=== PATIENT | male | born 1980 | race Asian ===

== ENCOUNTER 2020-01-14 18:21 | Inpatient (IN) | payer OTHER ==
[~2020-01-14] VITALS: Ht 193 cm; Wt 100.3 kg
--- NOTE | 2020-01-14 18:22 | NUR ---
Placed in room 01 . Placed on desk monitor, blood pressure machine and pulse oximeter. To gown for exam. Side rails up.
[2020-01-14 18:27] VITALS: BP_SYST 164
[2020-01-14] MEDS ORDERED: NACL 0.9% 1,000 ML IV ONE ×2 (18:27→20:34)
[2020-01-14] MEDS ORDERED: ONDANSETRON HCL 4 MG/2 ML VIAL IVP ONE (18:30)
[2020-01-14] MEDS ORDERED: LORazepam 2 MG/ML VIAL IVP ONE (18:30)
--- NOTE | 2020-01-14 18:30 | NUR ---
pt arrives via [facility]S d/t s/p seizure and DT. Per EMS pt had a witnessed tonic clonic kseizure that lasted approx 4 min. Per EMS pt did have a post ecital stage however, he is now AAOx3. Seizure precautions are in place
--- NOTE | 2020-01-14 18:30 | NUR ---
ER at bedside examining patient.
--- NOTE | 2020-01-14 18:45 | NUR ---
# 20 gauge angiocath placed to left hand by EMS. Use of asceptic technique. Opsite placed over site. Blood return noted. Blood for lab drawn from site. Flushed with 10 cc of normal saline. No evidence of infiltration noted. Patient tolerated well.
--- NOTE | 2020-01-14 18:50 | NUR ---
Medicated the pt w/ Ativan IVP, Zofran IVP, and NS 1l per MD order. Will reassess
[2020-01-14 19:03] LABS: ANION GAP 21 (5-15); CALCIUM 9.8 mg/dL (8.4-11.0); CHLORIDE 92 mmol/L (98-107); CREATININE 1.13 mg/dL (0.55-1.30); GLUCOSE 188 mg/dL (70-99); POTASSIUM 3.5 mmol/L (3.5-5.1); SODIUM SERUM 132 mmol/L (136-145); UREA NITROGEN, BLOOD 6 mg/dL (8-21)
[2020-01-14 19:04] LABS: BASOPHILS % (AUTO) 0.6 % (0.0-2.0); EOSINOPHILS % (AUTO) 0.4 % (0.0-4.0); GFR AFRICAN AMERICAN 93 mL/min (>90); HEMATOCRIT 43.7 % (36-54); HEMOGLOBIN 14.5 g/dL (14.0-18.0); LYMPHOCYTES # (AUTO) 0.6 K/uL (1.0-5.5); LYMPHOCYTES % (AUTO) 9.9 % (20.5-51.5); MEAN CORPUSCULAR HEMOGLOBIN 32 pg (27-31); MEAN CORPUSCULAR HGB CONC 33 % (32-36); MEAN CORPUSCULAR VOLUME 96 fL (79.0-98.0); MONOCYTES # (AUTO) 0.4 K/uL (0.0-1.0); MONOCYTES % (AUTO) 6.5 % (1.7-9.3); NEUTROPHILS # (AUTO) 5.4 K/uL (1.8-7.7); NEUTROPHILS % (AUTO) 82.6 % (40.0-70.0); RED BLOOD CELL COUNT(AUTO) 4.55 MIL/uL (4.2-6.2); RED CELL DISTRIBUTION WIDTH 13.5 % (9.0-15.0); WHITE BLOOD COUNT (AUTO) 6.6 K/uL (4.8-10.8)
--- NOTE | 2020-01-14 19:05 | NUR ---
urine collected and sent to the lab
[2020-01-14 19:09] LABS: ALANINE AMINOTRANSFERASE 140 U/L (12-78); ALBUMIN 3.6 g/dL (3.4-4.8); ASPARTATE AMINOTRANSFERASE 313 U/L (10-37); TOTAL BILIRUBIN 2.2 mg/dL (0.0-1.0)
[2020-01-14 19:11] LABS: ALCOHOL, BLOOD < 3 mg/dL (<10)
--- NOTE | 2020-01-14 19:13 | NUR ---
care endorsed to Prudence SHIN. Pt is currently in stable condition
--- NOTE | 2020-01-14 19:17 | NUR ---
report received from ALEIDA Lee for continuation of care.
--- NOTE | 2020-01-14 19:25 | NUR ---
Patient transported to radiology via gurney, accompanied by staff.
[2020-01-14 19:30] LABS: PLATELET COUNT (AUTO) 160 K/uL (130-430)
[2020-01-14 19:31] LABS: BARBITURATE, URINE NEGATIVE (NEG <=200); BENZODIAZEPINE, URINE NEGATIVE (NEG <=150); CANNABINOID, URINE NEGATIVE (NEG <=50); COCAINE, URINE NEGATIVE (NEG <=150); METHAMPHETAMINES SCREEN,URINE NEGATIVE (NEG <=500); OPIATE, URINE NEGATIVE (NEG <=100); PHENCYCLIDINE SCREEN,URINE NEGATIVE (NEG <=25); UR TRICYCLIC ANTIDEPRESSANTS POSITIVE (NEG <=300); URINE AMPHETAMINE NEGATIVE (NEG <=500); URINE METHADONE NEGATIVE (NEG <=200); URINE OXYCODONE SCREEN NEGATIVE (NEG <=100); URINE PROPOXYPHENE SCREEN NEGATIVE (NEG <=300)
--- NOTE | 2020-01-14 19:32 | NUR ---
, m\\\\critical lab reporting - lacitc acid 9.0
--- NOTE | 2020-01-14 19:41 | NUR ---
patients returned from radiology.
--- NOTE | 2020-01-14 19:55 | NUR ---
pt speaking on phone with family member. pt able to speak using complete sentences. pt alert and oriented x4. pt appears to have hand tremors.
--- NOTE | 2020-01-14 20:21 | NUR ---
pt reports being thirsty, given glass of water. no signs of difficulty swallowing, choking, or coughing.
--- NOTE | 2020-01-14 21:10 | NUR ---
pt IV fluids normal saline initiated at 999mls/hr per md order for a total of 2000ml.
[2020-01-14] MEDS ORDERED: chlordiazePOXIDE HCL 25 MG CAPSULE PO ONE (21:30)
--- NOTE | 2020-01-14 21:56 | NUR ---
medications adminstered per MD order. pt tolerated well.
[2020-01-14] MEDS ORDERED: cefTRIAXone 1 GM IVPB PREMIX 50 ML IV ONE (22:15)
--- NOTE | 2020-01-14 22:20 | NUR ---
Patient's code status is FULL CODE paperwork completed and placed in chart.
[2020-01-14] MEDS ORDERED: LISI-600 PO (22:21)
--- NOTE | 2020-01-14 22:21 | NUR ---
Medication reconciliation completed with information provided by PATIENT. Any prior medication reconciliation on file was reviewed and corrected.
--- NOTE | 2020-01-14 22:32 | NUR ---
Blood cultures drawn, prior to administration of antibiotic.
--- NOTE | 2020-01-14 22:38 | NUR ---
ADMIT ORDERS RECEIVED FROM DR. GUO.
--- NOTE | 2020-01-14 22:40 | NUR ---
CALLED [facility], CHARGE NURSE, TO REQUEST TELE BED.
[2020-01-14] MEDS ORDERED: FOLIC ACID 1 MG, THIAMINE HCL 100 MG, MAGNESIUM SULFATE 1 GM, MVI 10 ML in NACL 0.9% 1,... IV ONE (22:45)
[2020-01-14 23:21] LABS: THYROID STIMULATING HORMONE 2.54 uIu/mL (0.34-4.82)
[2020-01-14] MEDS ORDERED: MAGNESIUM SULFATE 1 GM/2 ML VIAL ONE (23:37)
[2020-01-14] MEDS ORDERED: MVI 10 ML VIAL IV ONE ×2 (23:37→23:50)
[2020-01-14] MEDS ORDERED: THIAMINE HCL 100 MG/ML VIAL ONE (23:37)
[2020-01-14] MEDS ORDERED: FOLIC ACID 5 MG/ML VIAL IV ONE (23:37)
--- NOTE | 2020-01-14 23:45 | NUR ---
banana bag 1000ml initiated at 150mls/hr per MD order. no signs of infiltration. pt tolerating well. pt denies pain. pt vital signs stable.
--- NOTE | 2020-01-15 00:55 | NUR ---
Patient will be admitted to care of Dr. Gimenez. Admitted to tele unit. Will go to room 113a. Belongings list completed. Complete and up to date summary report printed. SBAR report to be given at bedside with opportunity for questions.
--- NOTE | 2020-01-15 01:03 | NUR ---
Transfer to tele via ACLS protocol. Licensed nurse present. IV present no signs or symptoms of infiltration.
--- NOTE | 2020-01-15 01:18 | NUR ---
ADMISSION NOTE Received patient from ER via gurney. Patient admitted with diagnosis of DILIRIUM TREMORS, SEIZURE, ALCOHOLISM. Patient is awake, alert, oriented X 4. Patient oriented to hospital room, call light, toileting, pain management and safety-teach back done. Patient informed that JOEY will be nurse and that their room number is 113A. Personal belongings checked and Belongings List documented. Call light within reach.
[2020-01-15] MEDS: LORazepam 2 MG/ML VIAL IVP PRN ×2 (01:30→10:39)
[2020-01-15 01:33] VITALS: BP_SYST 143
--- NOTE | 2020-01-15 03:41 | NUR ---
RN ROUNDS PT RESTING IN BED, KIM ANY PAIN AT THIS TIME. BREATHING EVEN AND UNLABORED TO ROOM AIR. NO S/S OF DISTRESS NOTED. IVF RUNNING ORDERED RATE. NO SIGNS INFILTRATION NOTED. CALL LIGHT WITHIN REACH. SIDE RAILS UP. SAFETY AND FALL PRECAUTIONS MAINTAINED. WILL CONTINUE TO MONITOR.
[2020-01-15 06:43] LABS: BASOPHILS # (AUTO) 0.1 K/uL (0.0-0.2); EOSINOPHILS # (AUTO) 0.2 K/uL (0.0-0.4); EOSINOPHILS % (AUTO) 3.7 % (0.0-4.0); HEMATOCRIT 38.2 % (36-54); HEMOGLOBIN 12.9 g/dL (14.0-18.0); LYMPHOCYTES # (AUTO) 0.7 K/uL (1.0-5.5); LYMPHOCYTES % (AUTO) 13.4 % (20.5-51.5); MEAN CORPUSCULAR HEMOGLOBIN 33 pg (27-31); MEAN CORPUSCULAR HGB CONC 34 % (32-36); MEAN CORPUSCULAR VOLUME 97 fL (79.0-98.0); MONOCYTES # (AUTO) 0.5 K/uL (0.0-1.0); MONOCYTES % (AUTO) 9.1 % (1.7-9.3); NEUTROPHILS # (AUTO) 3.9 K/uL (1.8-7.7); NEUTROPHILS % (AUTO) 72.8 % (40.0-70.0); PLATELET COUNT (AUTO) 76 K/uL (130-430); RED BLOOD CELL COUNT(AUTO) 3.95 MIL/uL (4.2-6.2); RED CELL DISTRIBUTION WIDTH 13.7 % (9.0-15.0); WHITE BLOOD COUNT (AUTO) 5.3 K/uL (4.8-10.8)
[2020-01-15 07:00] LABS: CALCIUM 8.5 mg/dL (8.4-11.0); CREATININE 0.68 mg/dL (0.55-1.30); POTASSIUM 3.1 mmol/L (3.5-5.1); TOTAL BILIRUBIN 1.9 mg/dL (0.0-1.0)
--- NOTE | 2020-01-15 07:24 | NUR ---
CLOSING NOTES PT RESTING IN BED, KIM ANY PAIN AT THIS TIME. BREATHING EVEN AND UNLABORED TO ROOM AIR. NO S/S OF DISTRESS NOTED. IVF RUNNING ORDERED RATE. NO SIGNS INFILTRATION NOTED. CALL LIGHT WITHIN REACH. SIDE RAILS UP. SAFETY AND FALL PRECAUTIONS MAINTAINED. WILL CONTINUE TO MONITOR UNTIL ENDORSE TO DAY SHIFT RN.
[2020-01-15 08:00] VITALS: BP_SYST 146
--- NOTE | 2020-01-15 08:00 | NUR ---
initial notes rec patient awake alert with hob elevated and eating breakfast,.ivl intact on the r hand. no infiltration oted. bed to the lowest position and side rails up and locked. deniespain.no seizure activity noted.call light within reached no osb noted.
[2020-01-15] MEDS: chlordiazePOXIDE HCL 25 MG CAPSULE PO SCH ×2 (08:42→16:39)
[2020-01-15 12:00] VITALS: BP_SYST 157
--- NOTE | 2020-01-15 13:10 | NUR ---
rounds spoke with dr worrell to reconcile bp med. no sob noted. call light within reached.
[2020-01-15] MEDS ORDERED: cloNIDine HCL 0.1 MG TABLET PO PRN (13:15)
[2020-01-15] MEDS ORDERED: LISINOPRIL 20 MG TABLET PO ONE (13:15)
[2020-01-15 16:00] VITALS: BP_SYST 161
--- NOTE | 2020-01-15 16:26 | NUR ---
DC Planning: faxed updated progress notes to [facility] # [phone]. Unable to speak with [facility], I was on hold for more than 15 mins , will try again. Addendum: 01/15/20 at 1630 by Desean Javier RN The above info was faxed to [facility] at 0940. I called [facility], again with a long holding time tel # [phone]. I will call again in am.
--- NOTE | 2020-01-15 16:52 | NUR ---
rounds noted with periods of confusion. denies pain. insisted of going home.re oriented re elevated bp and pmd has not made rounds.
--- NOTE | 2020-01-15 19:00 | NUR ---
closing notes pt signed ama. stated that dr worrell instructed him re his meds. explained that that there was no d/c order. stated will signed ama and understood the consequences. no sob noted. jess cheek nurse took out the ivl and the id band. was escorted to the lobby. stated that family is waiting outside
[2020-01-16] MEDS ORDERED: LISINOPRIL 20 MG TABLET PO SCH (09:00)
--- NOTE | 2020-01-16 11:14 | NUR ---
DC Planning: Updated [facility], the pt left AMA yesterday at 1900.
== END 2020-01-15 19:09 | disposition left against medical advice (07) | DRG 101 ==
LOC: SED 18:21 → STU 22:48
PROVIDERS: ADMIT Internal Medicine; ATTEND Internal Medicine
DX: G40.409 Other generalized epilepsy and epileptic syndromes, not intractable, without status epilepticus (principal); F10.239 Alcohol dependence with withdrawal, unspecified; R74.0 Nonspecific elevation of levels of transaminase and lactic acid dehydrogenase [LDH]; R56.9 Unspecified convulsions; R00.0 Tachycardia, unspecified; Z88.1 Allergy status to other antibiotic agents; Z79.899 Other long term (current) drug therapy; Z71.41 Alcohol abuse counseling and surveillance of alcoholic
CPT/HCPCS: 36415; 70450-TC; 71045; 80053; 80061; 80307; 83605; 84443-TC; 84484; 85025; 85379; 86140; 87040-TC; 93005; G0378; G0482; J0696; J2060; J2405; J3411; J3475; J3490; J7030

== ENCOUNTER 2020-12-01 18:16 | Inpatient (IN) | payer OTHER, SELFPAY ==
[~2020-12-01] VITALS: Ht 193 cm; Wt 78.9 kg
[~2020-12-01 18:16] MED LIST: LISI20TA30 PO
[2020-12-01 18:18] VITALS: BP_SYST 158
[2020-12-01] MEDS ORDERED: LORazepam 2 MG/ML VIAL ONE (19:27)
[2020-12-01] MEDS ORDERED: LORazepam 2 MG/ML VIAL IVP ONE ×2 (19:30→21:15)
[2020-12-01 19:53] LABS: BASOPHILS # (AUTO) 0.1 K/uL (0.0-0.2); BASOPHILS % (AUTO) 1.5 % (0.0-2.0); EOSINOPHILS % (AUTO) 0.4 % (0.0-4.0); HEMATOCRIT 37.2 % (36-54); HEMOGLOBIN 11.9 g/dL (14.0-18.0); LYMPHOCYTES # (AUTO) 0.7 K/uL (1.0-5.5); LYMPHOCYTES % (AUTO) 11.7 % (20.5-51.5); MEAN CORPUSCULAR HEMOGLOBIN 33 pg (27-31); MEAN CORPUSCULAR HGB CONC 32 % (32-36); MEAN CORPUSCULAR VOLUME 102 fL (79.0-98.0); MONOCYTES # (AUTO) 0.7 K/uL (0.0-1.0); MONOCYTES % (AUTO) 11.9 % (1.7-9.3); NEUTROPHILS # (AUTO) 4.2 K/uL (1.8-7.7); NEUTROPHILS % (AUTO) 74.5 % (40.0-70.0); RED BLOOD CELL COUNT(AUTO) 3.64 MIL/uL (4.2-6.2); RED CELL DISTRIBUTION WIDTH 19.7 % (9.0-15.0); WHITE BLOOD COUNT (AUTO) 5.6 K/uL (4.8-10.8)
[2020-12-01 20:14] LABS: ANION GAP 29 (5-15); CALCIUM 8.5 mg/dL (8.4-11.0); CHLORIDE 100 mmol/L (98-107); CREATININE 0.88 mg/dL (0.55-1.30); GLUCOSE 138 mg/dL (70-99); POTASSIUM 4.3 mmol/L (3.5-5.1); SODIUM SERUM 139 mmol/L (136-145); UREA NITROGEN, BLOOD 7 mg/dL (8-21)
[2020-12-01] MEDS ORDERED: FOLIC ACID 5 MG/ML VIAL IV ONE (20:15)
[2020-12-01] MEDS ORDERED: THIAMINE HCL 100 MG in NS 50 ML IV ONE (20:15)
[2020-12-01] MEDS ORDERED: NACL 0.9% 1,000 ML IV ONE (20:15)
[2020-12-01] MEDS ORDERED: MAGNESIUM SULFATE 50 ML IV ONE (20:15)
[2020-12-01 20:26] LABS: ALANINE AMINOTRANSFERASE 43 U/L (12-78); ASPARTATE AMINOTRANSFERASE 231 U/L (10-37); FREE T4 (FREE THYROXINE) 1.4 ng/dl (0.8-1.5); THYROID STIMULATING HORMONE 5.03 uIu/mL (0.36-3.74); TOTAL BILIRUBIN 6.3 mg/dL (0.0-1.0)
[2020-12-01] MEDS ORDERED: THIAMINE HCL 100 MG/ML VIAL ONE (20:30)
[2020-12-01 20:32] LABS: GFR AFRICAN AMERICAN 124 mL/min (>90)
[2020-12-01 20:33] LABS: ALCOHOL, BLOOD < 3 mg/dL (<10)
[2020-12-01 20:34] LABS: ACETAMINOPHEN < 1 ug/mL (1-30)
[2020-12-01] MEDS ORDERED: D5NS 1,000 ML IV ONE (20:45)
[2020-12-01 22:30] VITALS: BP_SYST 131
[2020-12-01] MEDS: D5NS 1,000 ML IV SCH (22:40)
[2020-12-01] MEDS ORDERED: ONDANSETRON HCL 4 MG/2 ML VIAL IVP PRN (22:45)
[2020-12-01 23:00] VITALS: BP_SYST 112; BP_SYST 123
[2020-12-02] VITALS (24 sets, daily range): BP systolic 108–137
[2020-12-02] MEDS ORDERED: LORazepam 2 MG/ML VIAL ONE (02:10)
[2020-12-02] MEDS: ACETAMINOPHEN 325 MG TABLET PO PRN ×2 (02:13→18:49)
[2020-12-02] MEDS: LORazepam 2 MG/ML VIAL IVP PRN ×2 (02:14→13:41)
[2020-12-02 03:22] LABS: BILIRUBIN,URINE 2+ (NEGATIVE); CLARITY/URINE CLEAR (CLEAR); COLOR,URINE ORANGE (YELLOW); GLUCOSE,URINE TRACE (NEGATIVE); KETONES,URINE 3+ (NEGATIVE); LEUKOCYTE ESTERASE ,URINE NEGATIVE (NEGATIVE); NITRITE, URINE NEGATIVE (NEGATIVE); PROTEIN URINE 1+ (NEGATIVE)
[2020-12-02 03:28] LABS: BLOOD, URINE TRACE (NEGATIVE); UROBILINOGEN,URINE >=8 (0.2-1.0)
[2020-12-02 03:30] LABS: BACTERIA,URINE FEW /HPF (None Seen)
[2020-12-02 03:35] LABS: BARBITURATE, URINE NEGATIVE (NEG <=200); BENZODIAZEPINE, URINE NEGATIVE (NEG <=150); CANNABINOID, URINE NEGATIVE (NEG <=50); COCAINE, URINE NEGATIVE (NEG <=150); METHAMPHETAMINES SCREEN,URINE NEGATIVE (NEG <=500); OPIATE, URINE NEGATIVE (NEG <=100); PHENCYCLIDINE SCREEN,URINE NEGATIVE (NEG <=25); URINE AMPHETAMINE NEGATIVE (NEG <=500); URINE METHADONE NEGATIVE (NEG <=200); URINE OXYCODONE SCREEN NEGATIVE (NEG <=100); URINE PROPOXYPHENE SCREEN NEGATIVE (NEG <=300)
[2020-12-02 03:36] LABS: UR TRICYCLIC ANTIDEPRESSANTS NEGATIVE (NEG <=300)
[2020-12-02 07:21] LABS: BASOPHILS # (AUTO) 0.1 K/uL (0.0-0.2); BASOPHILS % (AUTO) 2.2 % (0.0-2.0); EOSINOPHILS % (AUTO) 0.5 % (0.0-4.0); HEMATOCRIT 31.8 % (36-54); HEMOGLOBIN 10.7 g/dL (14.0-18.0); LYMPHOCYTES # (AUTO) 0.8 K/uL (1.0-5.5); MEAN CORPUSCULAR HEMOGLOBIN 34 pg (27-31); MEAN CORPUSCULAR HGB CONC 34 % (32-36); MEAN CORPUSCULAR VOLUME 100 fL (79.0-98.0); MONOCYTES # (AUTO) 0.5 K/uL (0.0-1.0); MONOCYTES % (AUTO) 9.8 % (1.7-9.3); NEUTROPHILS # (AUTO) 3.8 K/uL (1.8-7.7); NEUTROPHILS % (AUTO) 72.5 % (40.0-70.0); RED BLOOD CELL COUNT(AUTO) 3.19 MIL/uL (4.2-6.2); WHITE BLOOD COUNT (AUTO) 5.3 K/uL (4.8-10.8)
[2020-12-02] MEDS: D5NS 1,000 ML IV SCH (07:30)
[2020-12-02 07:32] LABS: ALBUMIN 2.5 g/dL (3.4-4.8); CALCIUM 7.7 mg/dL (8.4-11.0); CREATININE 0.61 mg/dL (0.55-1.30); PHOSPHORUS 1.3 mg/dL (2.7-4.5); POTASSIUM 3.5 mmol/L (3.5-5.1); TOTAL BILIRUBIN 5.5 mg/dL (0.0-1.0)
[2020-12-02 07:58] LABS: PLATELET COUNT (AUTO) 28 K/uL (130-430)
[2020-12-02] MEDS: lisinopriL 20 MG TABLET PO SCH (09:26)
[2020-12-02] MEDS ORDERED: NS 500 ML IV ONE (12:15)
[2020-12-02] MEDS: SODIUM PHOSPHATE IN 0.9 % NACL 250 ML IV SCH ×2 (12:57→15:02)
[2020-12-02] MEDS: LR 1,000 ML IV SCH ×2 (13:41→18:37)
[2020-12-03] VITALS (19 sets, daily range): BP systolic 117–142
[2020-12-03] MEDS: ACETAMINOPHEN 325 MG TABLET PO PRN ×4 (00:27→21:52)
[2020-12-03] MEDS: LR 1,000 ML IV SCH ×5 (00:30→21:52)
[2020-12-03 06:29] LABS: BASOPHILS % (AUTO) 0.6 % (0.0-2.0); EOSINOPHILS # (AUTO) 0.1 K/uL (0.0-0.4); EOSINOPHILS % (AUTO) 1.4 % (0.0-4.0); HEMATOCRIT 33.8 % (36-54); HEMOGLOBIN 11.2 g/dL (14.0-18.0); LYMPHOCYTES # (AUTO) 0.8 K/uL (1.0-5.5); LYMPHOCYTES % (AUTO) 13.2 % (20.5-51.5); MEAN CORPUSCULAR HEMOGLOBIN 34 pg (27-31); MEAN CORPUSCULAR HGB CONC 33 % (32-36); MEAN CORPUSCULAR VOLUME 102 fL (79.0-98.0); MONOCYTES # (AUTO) 0.5 K/uL (0.0-1.0); MONOCYTES % (AUTO) 8.4 % (1.7-9.3); NEUTROPHILS # (AUTO) 4.7 K/uL (1.8-7.7); NEUTROPHILS % (AUTO) 76.4 % (40.0-70.0); RED BLOOD CELL COUNT(AUTO) 3.33 MIL/uL (4.2-6.2); RED CELL DISTRIBUTION WIDTH 19.2 % (9.0-15.0); WHITE BLOOD COUNT (AUTO) 6.1 K/uL (4.8-10.8)
[2020-12-03 06:57] LABS: ALBUMIN 2.4 g/dL (3.4-4.8); CALCIUM 7.7 mg/dL (8.4-11.0); CREATININE 0.56 mg/dL (0.55-1.30); POTASSIUM 3.7 mmol/L (3.5-5.1); TOTAL BILIRUBIN 6.7 mg/dL (0.0-1.0)
[2020-12-03 07:56] LABS: PLATELET COUNT (AUTO) 32 K/uL (130-430)
[2020-12-03 08:44] LABS: INR 1.7 (0.80-1.20); PROTHROMBIN TIME 16.7 SECS (9.5-12.5)
[2020-12-03] MEDS: lisinopriL 20 MG TABLET PO SCH (10:05)
[2020-12-03] MEDS: LORazepam 2 MG/ML VIAL IVP PRN ×2 (10:06→19:38)
[2020-12-03] MEDS ORDERED: NA PHOS 15 MM in NS 250 ML IV ONE (13:15)
[2020-12-04 00:33] VITALS: BP_SYST 110
[2020-12-04] MEDS: LORazepam 2 MG/ML VIAL IVP PRN ×2 (02:56→08:18)
[2020-12-04] MEDS: LR 1,000 ML IV SCH ×2 (03:55→06:45)
[2020-12-04 06:59] LABS: EOSINOPHILS # (AUTO) 0.1 K/uL (0.0-0.4); EOSINOPHILS % (AUTO) 1.4 % (0.0-4.0); HEMATOCRIT 35.7 % (36-54); HEMOGLOBIN 11.8 g/dL (14.0-18.0); LYMPHOCYTES # (AUTO) 1.1 K/uL (1.0-5.5); LYMPHOCYTES % (AUTO) 17.5 % (20.5-51.5); MEAN CORPUSCULAR HEMOGLOBIN 34 pg (27-31); MEAN CORPUSCULAR HGB CONC 33 % (32-36); MEAN CORPUSCULAR VOLUME 101 fL (79.0-98.0); MONOCYTES # (AUTO) 0.6 K/uL (0.0-1.0); MONOCYTES % (AUTO) 9.4 % (1.7-9.3); RED BLOOD CELL COUNT(AUTO) 3.52 MIL/uL (4.2-6.2); RED CELL DISTRIBUTION WIDTH 18.8 % (9.0-15.0); WHITE BLOOD COUNT (AUTO) 6.4 K/uL (4.8-10.8)
[2020-12-04 07:25] LABS: CALCIUM 7.8 mg/dL (8.4-11.0); CREATININE 0.59 mg/dL (0.55-1.30); PHOSPHORUS 2.1 mg/dL (2.7-4.5); POTASSIUM 3.2 mmol/L (3.5-5.1)
[2020-12-04 08:00] VITALS: BP_SYST 142
[2020-12-04] MEDS ORDERED: DIATR MEGLU/DIATRIZ SOD 30 ML SOLUTION PO ONE (08:56)
[2020-12-04 08:58] LABS: BASOPHILS % (AUTO) 0.2 % (0.0-2.0); NEUTROPHILS # (AUTO) 4.6 K/uL (1.8-7.7); NEUTROPHILS % (AUTO) 71.5 % (40.0-70.0); PLATELET COUNT (AUTO) 43 K/uL (130-430)
[2020-12-04] MEDS ORDERED: LACTULOSE 20 GM/30 ML UDC PO ONE (09:00)
[2020-12-04] MEDS: lisinopriL 20 MG TABLET PO SCH (09:00)
[2020-12-04 10:00] LABS: ERYTHROCYTE SEDIMENTATION RATE 33 MM/HR (0-15)
[2020-12-04 11:34] VITALS: BP_SYST 141
[2020-12-04 13:00] LABS: PLATELET COUNT (AUTO) 33 K/uL (130-430)
[2020-12-04] MEDS ORDERED: LACTULOSE 20 GM/30 ML UDC PO SCH (15:00)
[2020-12-04 15:31] VITALS: BP_SYST 148
[2020-12-04] MEDS ORDERED: K PHOS 15 MM in NS 250 ML IV ONE (18:00)
[2020-12-04 20:30] VITALS: BP_SYST 141
[2020-12-04] MEDS ORDERED: chlordiazePOXIDE HCL 25 MG CAPSULE PO SCH (21:00)
[2020-12-04 21:23] VITALS: BP_SYST 141
[2020-12-05] MEDS ORDERED: MULTIVITS,CA,MINERALS/IRON/FA 1 TABLET PO SCH (09:00)
[2020-12-05] MEDS ORDERED: FOLIC ACID 1 MG TABLET PO SCH (09:00)
[2020-12-05] MEDS ORDERED: THIAMINE HCL 100 MG TABLET PO SCH (09:00)
== END 2020-12-04 20:03 | disposition short-term general hospital (02) | DRG 53 ==
LOC: SED 18:16 → SIC 21:37 → STU 12-03 16:31
PROVIDERS: ADMIT Preventive Medicine Preventive Medicine/Occupational Environmental Medicine; ATTEND Preventive Medicine Preventive Medicine/Occupational Environmental Medicine
DX: R56.9 Unspecified convulsions (principal); F10.231 Alcohol dependence with withdrawal delirium; D69.6 Thrombocytopenia, unspecified; E44.0 Moderate protein-calorie malnutrition; E87.2 Acidosis; E83.39 Other disorders of phosphorus metabolism; E83.52 Hypercalcemia; K76.6 Portal hypertension; N39.0 Urinary tract infection, site not specified; K70.10 Alcoholic hepatitis without ascites; D64.9 Anemia, unspecified; I10 Essential (primary) hypertension; R73.9 Hyperglycemia, unspecified; Z88.1 Allergy status to other antibiotic agents; Z68.21 Body mass index [BMI] 21.0-21.9, adult; Z71.41 Alcohol abuse counseling and surveillance of alcoholic; E87.6 Hypokalemia; I24.8 Other forms of acute ischemic heart disease
CPT/HCPCS: 36415; 36600; 70450-TC; 76376; 76700-TC; 80048; 80053; 80307; 81000; 82140; 82803-TC; 83605; 83735; 84100; 84439; 84443; 84484; 85025; 85610-TC; 85651-TC; 86140; 87040-TC; 87081; 87086; 93005; 93306; 96361; 96365; 96366; 96375; 99291; G0378; G0480; G0481; G0482; J2060; J3411; J3475; J3490; J7050; Q9964